=== PATIENT | male | born 2000 | race Two or more races ===

== ENCOUNTER 2019-04-26 13:56 | Emergency (ER) | payer SELFPAY ==
[~2019-04-26] VITALS: Ht 188 cm; Wt 93.9 kg
--- NOTE | 2019-04-26 14:20 | NUR ---
IV removed BY PATIENT. Catheter intact and site benign. Pressure and 4x4 applied to site. No bleeding noted.
[2019-04-26] MEDS ORDERED: ONDANSETRON 4 MG TAB.RAPDIS SL ONE (14:30)
--- NOTE | 2019-04-26 14:45 | NUR ---
Pt pulled out Angio cath R ACV- Attempted to elope. Dr Easley notified- spoke to pt.
[2019-04-26] MEDS ORDERED: ONDANSETRON 4 MG TAB.RAPDIS ONE (14:50)
[2019-04-26 16:13] VITALS: BP 123/79
--- NOTE | 2019-04-26 16:13 | NUR ---
NO obvious distress. Respiration even unlabored. GCS-15 AAO x3. Pt got out of bed. Ambulatory-gait steady. States "you guys can't keep me here" [place]. made aware
== END 2019-04-26 16:16 | disposition left against medical advice (07) ==
LOC: ER 13:56
DX: F11.10 Opioid abuse, uncomplicated (principal); R41.82 Altered mental status, unspecified; Z60.2 Problems related to living alone
CPT/HCPCS: 99283; Q0162